=== PATIENT | female | born 2000 | race Caucasian/White ===

== ENCOUNTER 2021-09-24 05:54 | Inpatient (IN) | payer OTHER ==
[~2021-09-24] VITALS: Ht 160 cm; Wt 107.5 kg
[~2021-09-24 05:54] MED LIST: COLACE 100MG C100 MG PO; IBUPROFEN600 MG PO; LORTAB 5-325 M1 EACH PO
[2021-09-24 07:05] LABS: HEMOGLOBIN 11.2 gm/dl (12.3-15.3); RED BLOOD COUNT 3.82 M/UL (4.00-5.10); WHITE BLOOD COUNT 15.9 K/UL (4.5-11.0)
[2021-09-24] MEDS ORDERED: DOCUSATE SODIU100 MG PO (09:52)
[2021-09-24] MEDS ORDERED: IBUPROFEN600 MG PO (09:52)
[2021-09-24] MEDS ORDERED: HYDROCODON-ACE1 EAC4 PO (09:52)
[2021-09-25 04:19] LABS: HEMOGLOBIN 10.7 gm/dl (12.3-15.3)
== END 2021-09-25 08:50 | disposition home or self-care (01) | DRG 788 ==
LOC: OB 05:54
PROVIDERS: ADMIT Obstetrics & Gynecology
PROC: 10D00Z1 Extraction of Products of Conception, Low, Open Approach (ICD-10-PCS; principal; 2021-09-24 07:30)
DX: O36.5930 Maternal care for other known or suspected poor fetal growth, third trimester, not applicable or unspecified (principal); O34.211 Maternal care for low transverse scar from previous cesarean delivery; O99.344 Other mental disorders complicating childbirth; F32.A Depression, unspecified; F41.9 Anxiety disorder, unspecified; Z20.822 Contact with and (suspected) exposure to COVID-19; Z37.0 Single live birth; Z3A.38 38 weeks gestation of pregnancy; Z28.310 Unvaccinated for COVID-19; Z82.49 Family history of ischemic heart disease and other diseases of the circulatory system; Z81.8 Family history of other mental and behavioral disorders; Z83.3 Family history of diabetes mellitus
CPT/HCPCS: 81001; 82800; 85014; 85018; 85025; C9113; J0690; J1885; J2274; J2370; J2405; J2590; J3010; J7120; U0002